=== PATIENT | male | born 1980 | race Caucasian/White ===

== ENCOUNTER 2020-09-05 01:20 | Inpatient (IN) | payer OTHER ==
[~2020-09-05] VITALS: Ht 193 cm; Wt 100.0 kg
--- NOTE | 2020-09-05 01:30 | NUR ---
pt bibra c/o bilateral foot pain. Pt aaox4 breathing evenly and unlabored. Pt states "it might be infected" Upon assessement pt has some redness and peeling skin. Pt skin warm and dry. Pt attached to monitor and pox. Md at bedside for eval. Pt given blanket and call light within reach
[2020-09-05] MEDS ORDERED: FLUCONAZOLE (100 MG) 100 MG TABLET PO ONE (02:00)
[2020-09-05] MEDS ORDERED: VANCOMYCIN 1 GM in IV D5W 250 ML IV ONE (02:00)
[2020-09-05] MEDS ORDERED: VANCOMYCIN 1 GM VIAL ONE (02:06)
[2020-09-05] MEDS ORDERED: FLUCONAZOLE (100 MG) 100 MG TABLET ONE (02:06)
[2020-09-05 02:27] LABS: BASOPHILS # (AUTO) 0.1 /CMM (0.0-0.2); BASOPHILS % (AUTO) 0.5 % (0.0-2.0); EOSINOPHILS % (AUTO) 1.5 % (0.0-6.0); HEMATOCRIT 38 % (39-51); HEMOGLOBIN 12.3 g/dL (13.5-17.5); LYMPHOCYTES # (AUTO) 2.2 /CMM (0.8-4.8); LYMPHOCYTES % (AUTO) 18.6 % (20.0-44.0); MEAN CORPUSCULAR HGB CONC 33 g/dl (31.0-36.0); MEAN CORPUSCULAR VOLUME 91 fL (80-96); MONOCYTES # (AUTO) 0.9 /CMM (0.1-1.30); MONOCYTES % (AUTO) 7.3 % (2.0-12.0); NEUTROPHILS # (AUTO) 8.6 /CMM (1.8-8.9); NEUTROPHILS % (AUTO) 72.1 % (43.0-81.0); PLATELET COUNT (AUTO) 331 /CMM (150-450); RED BLOOD CELL COUNT(AUTO) 4.12 MIL/uL (4.5-6.0)
[2020-09-05 02:36] LABS: ALBUMIN 3.7 g/dL (3.4-5.0); BILIRUBIN,DIRECT 0.1 mg/dL (0.0-0.2); BILIRUBIN,TOTAL 0.3 mg/dL (0.2-1.0); CALCIUM, SERUM 8.9 mg/dL (8.5-10.1); CREATININE 0.8 mg/dL (0.6-1.3); POTASSIUM 3.1 mmol/L (3.5-5.1); TOTAL PROTEIN, SERUM 7.3 g/dL (6.4-8.2)
[2020-09-05] MEDS ORDERED: IV PREMIX D5 1/2NS + KCL 1,000 ML IV ONE ×2 (03:00→03:44)
--- NOTE | 2020-09-05 03:02 | NUR ---
CALL FROM LAB. RAPID COVID NEGATIVE.
--- NOTE | 2020-09-05 03:32 | NUR ---
DR. JARAMILLO SPEAKING TO [facility] LAURA
--- NOTE | 2020-09-05 03:34 | NUR ---
CALLED RN SUP. FOR MED SURG BED.
--- NOTE | 2020-09-05 03:51 | NUR ---
report given to alvarado on third floor
[2020-09-05] MEDS ORDERED: LAMO100T41 PO (03:59)
[2020-09-05] MEDS ORDERED: GABA-532 PO (03:59)
[2020-09-05] MEDS ORDERED: ARIP10TA9 PO (03:59)
[2020-09-05] MEDS ORDERED: TEMA15CA5 PO (03:59)
[2020-09-05] MEDS ORDERED: TEMAZEPAM 15 MG CAPSULE PO PRN (04:00)
[2020-09-05] MEDS ORDERED: MAGNESIUM HYDROXIDE 30 ML UDC PO PRN (04:00)
[2020-09-05] MEDS ORDERED: IV NS 0.9% 1,000 ML IV PRN (04:00)
[2020-09-05] MEDS ORDERED: Z GUARD REMEDY 2 OZ OINT TP PRN (04:00)
[2020-09-05] MEDS ORDERED: ONDANSETRON HCL/PF 4 MG/2 ML VIAL IVP PRN (04:00)
[2020-09-05] MEDS ORDERED: HYDROCODONE/APAP 5/325MG TABLET PO PRN (04:00)
[2020-09-05] MEDS ORDERED: MAG HYDROX/AL HYDROX/SIMETH 30 ML UDC PO PRN (04:00)
[2020-09-05] MEDS ORDERED: ACETAMINOPHEN 325 MG TABLET PO PRN (04:00)
[2020-09-05] MEDS ORDERED: HYDROCODONE/APAP 5/325MG TABLET PO ONE (04:00)
[2020-09-05 04:05] VITALS: BP 146/91
--- NOTE | 2020-09-05 04:05 | NUR ---
MS TEN PIN BOWLING CENTRE MANAGER NOTES GOT REPORT ON THE PHONE FROM GABRIEL FRANCIS. PATIENT RECEIVED AT THIS TIME VIA [facility]. PATIENT AMBULATORY. NO S/S OF DISTRESS, TOLERATING ROOM AIR. NO C/O PAIN AT THE MOMENT. L. AC IV LINE INTACT, RUNNING POTASSIUM CHLORIDE 1000ML @250 ML/HR. VS FOLLOW: BP- 146/91; HR-61; T- 98.0; O2 SAT 100% ON ROOM AIR. WEIGHING 220.6 LBS VIA BED SCALE. WILL CONTINUE TO MONITOR.
--- NOTE | 2020-09-05 04:09 | NUR ---
pt was transferred to 326 in stable condition
[2020-09-05 05:36] VITALS: BP 146/91
--- NOTE | 2020-09-05 06:33 | NUR ---
MS RN CLOSING PATIENT IN BED WITH EYES CLOSED, EASY TO AROUSE. A/OX 4. NO S/S OF DISTRESS. NO C/O PAIN BLUE. ABLE TO MAKE NEEDS KNOWN, ALL NEEDS ATTENDED. PATIENT AMBULATORY. SAFETY KEPT IN PLACE THE WHOLE SHIFT: BED IN LOWEST, LOCKED POSITION; CALL LIGHT WITHIN REACH. IV RUNNING POTASSIUM CHLORIDE @250 ML/HR FROM ER. WILL ENDORSE CARE TO MORNING RN.
--- NOTE | 2020-09-05 07:22 | NUR ---
MS RN OPENING NOTE PATIENT IS ASLEEP IN BED, EASY TO AROUSE. PATIENT IS ALERT AND ORIENTED X 4. ON ROOM AIR WITH EVEN AND UNLABORED BREATHING. SO SIGNS OF RESPIRATORY DISTRESS. WITH IV ACCESS ON LEFT AC G#20, PATENT AND INTACT. SAFETY MEASURES IN PLACE WITH SIDE RAILS UP X 2. BED AT LOWEST POSITION AND LOCKED. CALL LIGHT IS WITHIN REACH AT ALL TIMES. WILL CONTINUE TO MONITOR PATIENT.
[2020-09-05 08:00] VITALS: BP 140/89
[2020-09-05] MEDS: POTASSIUM CHLORIDE 20 MEQ TAB.PRT.SR PO SCH ×2 (10:20→11:21)
[2020-09-05] MEDS: VANCOMYCIN 1.25 GM in IV D5W 250 ML IV SCH ×2 (10:21→17:24)
[2020-09-05 16:00] VITALS: BP 139/89
--- NOTE | 2020-09-05 17:44 | NUR ---
MS RN CLOSING NOTE PATIENT AWAKE ON BED ALERT AND ORIENTED. PATIENT DENIES ANY PAIN OR DISCOMFORT. WITH NO SIGNS OF DISTRESS THROUGHOUT THE SHIFT. NO SIGNS AND SYMPTOMS OF AKATHISIA, TREMORS OR EPS NOTED THROUGHOUT THE SHIFT. BED MAINTAINED ON LOWEST POSITION AND LOCKED. CALL LIGHT AND BEDSIDE TABLE WITHIN REACH AT ALL TIMES. WILL ENDORSE TO LITHOGRAPHIC RETOUCHER APPRENTICE FOR CONTINUITY OF CARE.
--- NOTE | 2020-09-05 18:24 | NUR ---
RN NOTES PHOTOS OF SKIN ISSUES TAKEN AND PLACED IN CHART. WOUND CARE CONSULT ORDERED FOR PATIENT.
[2020-09-05] MEDS: GABAPENTIN 300 MG CAPSULE PO SCH (19:01)
[2020-09-05] MEDS: CLONIDINE HCL 0.1 MG TABLET PO SCH (19:02)
--- NOTE | 2020-09-05 19:49 | NUR ---
MS RN OPENING NOTE RECEIVED PT AWAKE IN BED. A/O X4. PT STABLE ON ROOM AIR. NO SOB NOTED. NO S/S OF RESPIRATORY DISTRESS. PT IS AMBULATORY WITH BRP. PT HAS NO C/O PAIN AT THIS TIME. IV ACCESS IN LEFT FA #22, INFUSING NS @ 75 ML/HR. IV IS INTACT, PATENT, AND FLUSHING WELL. SAFETY MEASURES MAINTAINED. BED IN LOWEST LOCKED POSITION, HOB ELEVATED, SIDE RAILS UP X2. CALL LIGHT AND TABLE WITHIN REACH. WILL CONTINUE WITH PLAN OF CARE.
[2020-09-05 20:00] VITALS: BP 132/83
--- NOTE | 2020-09-05 22:58 | NUR ---
RECEIVED ORDERS FROM DR. SANCHEZ TO ADMINISTER NORCO 5-325 1 TAB PO Q4H PRN FOR MODERATE PAIN LEVEL 4-7. ORDERS READ BACK, ENTERED, AND CARRIED OUT. WILL CONTINUE TO MONITOR.
[2020-09-06] MEDS: HYDROCODONE/APAP 5/325MG TABLET PO PRN ×2 (00:33→05:29)
--- NOTE | 2020-09-06 00:33 | NUR ---
MS RN PAIN PT C/O THROBBING PAIN IN RIGHT FOOT, RATED 7/10 ON 1-10 PAIN SCALE. VS WNL. PER PT REQUEST, ADMINISTERED NORCO 5-325 MG PO Q4H PRN FOR PAIN. WILL CONTINUE TO MONITOR.
[2020-09-06] MEDS: VANCOMYCIN 1.25 GM in IV D5W 250 ML IV SCH ×3 (01:45→17:34)
[2020-09-06] MEDS: CLONIDINE HCL 0.1 MG TABLET PO SCH ×3 (05:19→20:31)
--- NOTE | 2020-09-06 05:29 | NUR ---
MS RN PAIN PT C/O THROBBING PAIN IN RIGHT FOOT, RATED 7/10 ON 1-10 PAIN SCALE. VSS. PER PT REQUEST, ADMINISTERED NORCO 5-325 MG PO Q4H PRN FOR PAIN. WILL CONTINUE TO MONITOR.
--- NOTE | 2020-09-06 06:02 | NUR ---
MS RN CLOSING NOTE PT IS AWAKE IN BED AT THIS TIME. A/O X4. PT STABLE ON ROOM AIR. NO SOB NOTED. NO S/S OF RESPIRATORY DISTRESS. PT IS AMBULATORY WITH BRP. IV ACCESS IS INTACT, PATENT, AND FLUSHING WELL. ALL NEEDS HAVE BEEN MET. PAIN MANAGEMENT ADMINISTERED PER ORDER. SAFETY MEASURES MAINTAINED AT ALL TIMES. BED IN LOWEST LOCKED POSITION, HOB ELEVATED, SIDE RAILS UP X2. CALL LIGHT AND TABLE WITHIN REACH. WILL ENDORSE TO ONCOMING NURSE FOR FAINA.
[2020-09-06 06:24] LABS: BASOPHILS # (AUTO) 0.1 /CMM (0.0-0.2); BASOPHILS % (AUTO) 0.9 % (0.0-2.0); EOSINOPHILS % (AUTO) 3.6 % (0.0-6.0); HEMATOCRIT 38 % (39-51); HEMOGLOBIN 12.7 g/dL (13.5-17.5); LYMPHOCYTES # (AUTO) 2.3 /CMM (0.8-4.8); LYMPHOCYTES % (AUTO) 28.2 % (20.0-44.0); MEAN CORPUSCULAR HGB CONC 34 g/dl (31.0-36.0); MEAN CORPUSCULAR VOLUME 91 fL (80-96); MONOCYTES # (AUTO) 0.6 /CMM (0.1-1.30); MONOCYTES % (AUTO) 7.4 % (2.0-12.0); NEUTROPHILS # (AUTO) 4.8 /CMM (1.8-8.9); NEUTROPHILS % (AUTO) 59.9 % (43.0-81.0); PLATELET COUNT (AUTO) 298 /CMM (150-450); RED BLOOD CELL COUNT(AUTO) 4.18 MIL/uL (4.5-6.0); WHITE BLOOD COUNT (AUTO) 8.1 K/uL (4.3-11.0)
[2020-09-06 06:55] LABS: CALCIUM, SERUM 8.2 mg/dL (8.5-10.1); CREATININE 0.6 mg/dL (0.6-1.3); MAGNESIUM 2.1 mg/dL (1.8-2.4); PHOSPHORUS 3.7 mg/dL (2.5-4.9); POTASSIUM 4.2 mmol/L (3.5-5.1)
--- NOTE | 2020-09-06 07:35 | NUR ---
MS RN OPENING NOTE RECEIVED PT ASLEEP IN BED, EASY TO AROUSE. A/O X4. PT STABLE ON ROOM AIR. NO SOB NOTED. NO SIGNS OR SYMPTOMS OF RESPIRATORY DISTRESS. PATIENT IS AMBULATORY WITH BRP. IV ACCESS IN LEFT FA #22. IV IS INTACT AND PATENT. SAFETY MEASURES IN PLACE. BED IN LOWEST LOCKED POSITION WITH SIDE RAILS UP X2. CALL LIGHT IS WITHIN REACH. WILL CONTINUE TO MONITOR THROUGHOUT SHIFT.
[2020-09-06 08:00] VITALS: BP 136/69
--- NOTE | 2020-09-06 08:14 | NUR ---
WOUND CARE CONSULT: PT PRESENTS WITH PAINFUL LESIONS TO PLANTAR FEET/TOES, PRESENT ON ADMISSION. RECOMMEND DPM CONSULT. DR JACOBSEN NOTIFIED OF CONSULT REQUEST. PT IS INDEPENDENT WITH BED MOBILITY AND IS CONTINENT. MD IN AGREEMENT WITH PLAN OF CARE.
--- NOTE | 2020-09-06 09:00 | NUR ---
MS RN NOTES PHARMACY CALLED TO CLARIFY PATIENT ALLERGIC TO HYDROMORPHONE, IF PATIENT HAS TAKEN MORPHINE BEFORE. VERIFIED WITH PATIENT, PATIENT SAID "I HAD MORPHINE BEFORE WITH NO PROBLEM." NOTIFIED PHARMACY AND DR. SISI CHAPMAN SAID OK TO GIVE MORPHINE.
[2020-09-06] MEDS: ENOXAPARIN SODIUM 40 MG/0.4 ML DISP.SYRIN SQ SCH ×2 (09:17→09:40)
[2020-09-06] MEDS: GABAPENTIN 300 MG CAPSULE PO SCH ×3 (09:17→17:30)
[2020-09-06] MEDS: MORPHINE SULFATE INJ 4 MG/ML DISP.SYRIN IV PRN ×4 (09:32→21:17)
--- NOTE | 2020-09-06 12:37 | NUR ---
MS RN NOTES 2 BOLT LABELER OFFICERS ARRIVED ON UNIT TO SPEAK DIRECTLY TO PATIENT TO DISCUSS PERSONAL MATTER OF AN OCCURRENCE PRIOR TO ADMISSION IN HOSPITAL.
--- NOTE | 2020-09-06 12:37 | NUR ---
MS RIOS NOTES 2 TECHNICAL SPECIALIST CYTOGENETICS IN [facility] ARRIVED ON UNIT FOR PATIENT TO DISCUSS PERSONAL MATTER OF AN OCCURRENCE PRIOR TO ADMISSION IN HOSPITAL. Addendum: 09/06/20 at 1931 by DENA TA RN DISREGARD ABOVE NOTES, WRONG ENTRY.
--- NOTE | 2020-09-06 13:19 | NUR ---
MS RN NOTES ORDERS RECEIVED FOR BACTROBAN TOPICAL THREE TIMES A DAY TO BILATERAL FEET FROM DR. SISI CHAPMAN. ORDERS READ BACK AND CARRIED OUT.
--- NOTE | 2020-09-06 14:49 | NUR ---
MS RN NOTE PATIENT IS AWAKE IN BED. ALERT AND ORIENTED X4. NO SIGNS AND SYMPTOMS OF DISTRESS NOTED. MORPHINE GIVEN AT 1306. SAFETY MEASURES IN PLACE. SIDE RAILS UP X 2, BED LOCKED AT LOWEST POSITION. CALL LIGHT WITHIN REACH. WILL CONTINUE TO MONITOR THROUGHOUT SHIFT.
--- NOTE | 2020-09-06 16:00 | NUR ---
"SS consult: SS Consult requested for homelessness and Drug use. The pt. is a 40-year old male. CHET met with pt. bedside. The pt. is alert & oriented x 4. The pt. appears unkempt, has pressured speech pt.s mood is sad. Pt. began crying during interview. Pt. states that he has been experiencing homelessness for the past 4 months and has been staying in shelters. Pt. is open to usp placement after he is medically cleared. SW provided pt. with homeless resources and pt. stated he will call some shelters and see if they can hold a bed for him. CHET explored pt.s psych Hx. Per pt. he has been diagnosed with Bipolar Disorder and is currently not on any psychotropic medication. Per pt. he has been using heroin and other drugs from the age of 14- 23 and was sober from age [age]. Per pt. he began to use Heroin & Fentanyl in 2018 after his divorce. Patient was given a dose of Morphine by Dr. Long Chaidez. This social service technician met with patient and provided him with referrals to: [facility]: [address] [place] [address] Intake hours: 5:45am9:00am, walk-ins Wednesday, Wednesday, [facility]: [address] [place] [address] Intake hours: 5:45am12:30pm, Wednesday and [facility]: [address] [place] [address] Intake hours: 8:00am2:00pm, Wednesday through Wednesday Patient stated he will present for intake at [facility] ([address] [place] [address]; [phone]) upon discharge. flat screen worker provided support with motivational interviewing, education regarding opioid dependence, brief intervention and referral to treatment. Patient appears to be at the Action phase of change with his substance dependence. Patients additional concerns were that his disability benefits have and is working on an extension with his PCP.Patient has opioid dependence at [facility] patient reports failed attempts with treatment for his substance dependence. Patient states he has 3 daughters who he keeps in contact with daily and are his motivation to stay sober. flat screen worker provided her desk number for patient to call if he needs additional support, resources or assistance. Report was given to RN, Lisa Helms, who is agreeable to plan. SW informed charge nurse that patient should be provided with bus pass upon discharge. Patient signed the homeless waiver & it was filed in the pt.s chart. CHET provided pt. with the following homeless resources: Substance Abuse resources provided included: [facility] Substance Abuse Self-Helpline ([facility]) ; CRI -HELP [address] [facility] [place] [phone] ; [facility] [address] [facility] [address] ; [facility] [address] [facility] [phone] ; [facility] [address] [phone] ; [facility] [address] [facility] [address] ; [facility] [address] [facility] [phone] ; [facility] Substance Abuse Helpline([facility] ; [facility] ; [facility]; [facility] [place]; [facility] [place]athan; [facility]; [place]; [facility] [place]; [facility] [place]; Alcoholics Anonymous -SFV; Mx-Kewg-Pormxyl ; Marijuana Anonymous -SFV; Narcotics Anonymous www.na.org; Year-round shelters: [facility] [place] [address] [place] [address] ; [facility] [place] [address] [facility] [place] [address]; [facility] [address] [facility] [address] Winter Shelters: Kelly Nunes [place] Provider: [facility] [place] Address: [address] [place], [address] # of Beds: 47 Population Served: [facility] 6 | [facility] [place] Provider: [facility] Address: [address], [address] # of Beds: 66 Population Served: [facility] [place] Provider: First [facility] Serve Address: [address] [facility], [address] # of Beds: 56 Population Served: [facility] [place]ron [place] Provider: SS/[facility]. [facility] Address: [address] [facility], [address] # of Beds: 49 Population Served: [facility] 8 | [facility] Provider: [facility] Address: [address] [facility], [address] # of Beds: 37 Population Served: [facility] Hygiene: [facility]: [address] [address] ; [facility] [address] [facility] ; [facility] [address] . Food Resources: [place] [facility] at [facility]- [address] [place]; Meet Each Need with Dignity ([facility]) [address] [address] [place]; [facility] Food Pantry [address] [facility]; [facility] [address]. Mental Health resources provided: [facility] [address] [place] [address] ; [facility] [address] [facility] [address], [place], [place] [phone] ; [facility] [address] [place], [place] [phone] ; [facility] [address] [place], [place] [address] Healthcare Clinics: [facility] [address] [facility], [address] [place]. [place] ; [facility] [address] [facility] [address] [place] [address]; [facility] [address] [facility] [phone] Counseling--Outpatient [facility] [address] [facility] [address], [place] [address] (Specializes in in-depth psychotherapy for emotional distress: anxiety, depression, interpersonal conflicts, life transitions, childhood abuse) [facility] [address] [place] [address] (Assist with solving problem marital difficulties, separation & divorce, aging parents, & grief, chronic & terminal illness) [facility] [address] [place] [address] (Deal with loss & grief, anxiety, marital difficulties) Homebound/Mental Health Services [address] [facility], [address] [place], [place] [phone] (Provide in-home mental services to people who are incapable of leaving their homes) [facility] for Needs of the Elderly Senior Service/Resource Center [address] [facility] [place] [address] [facility] 6514 [facility]. [place], [place] [address] PSYCHIATRIC OUTPATIENT SERVICES [facility] Partial Hospitalization and Intensive Outpatient Program (Managed Care and [place] Only)[address] [address]. [facility] [phone] [facility] Partial Hospitalization and Outpatient [id number] [facility]. [address] [place], [place] [phone] [facility] Partial Hospitalization and Outpatient Pixclfg[address] [facility]. [place], [place] [phone] [facility] Geo02259 [address] [facility]. [address] [place], [place] [phone] [facility] Partial Hospitalization and Outpatient Nuofcix[address] [place], [phone] "
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
[2020-09-06] MEDS ORDERED: MUPIROCIN OINT 2% 22 GM TUBE TP SCH (17:00)
--- NOTE | 2020-09-06 19:07 | NUR ---
MS RN CLOSING NOTE PATIENT IS AWAKE IN BED. A/O X4. PT STABLE ON ROOM AIR. NO SOB NOTED. NO SIGNS OR SYMPTOMS OF RESPIRATORY DISTRESS. PATIENT IS AMBULATORY WITH BRP. IV ACCESS IN LEFT FA #22. IV IS INTACT AND PATENT. PAIN MEDICATION GIVEN AT 1734. SAFETY MEASURES IN PLACE. BED IN LOWEST LOCKED POSITION WITH SIDE RAILS UP X2. CALL LIGHT IS WITHIN REACH. WILL ENDORSE TO ONCOMING SHIFT.
[2020-09-06 20:00] VITALS: BP 126/88
--- NOTE | 2020-09-06 21:17 | NUR ---
MS RN PAIN PT C/O SHARP AND THROBBING PAIN IN RIGHT FOOT, RATED 9/10 ON 1-10 PAIN SCALE. VS WNL. PER PT REQUEST, ADMINISTERED MORPHINE SULFATE 4 MG IV Q3H PRN FOR PAIN. WILL CONTINUE TO MONITOR.
[2020-09-07] MEDS: VANCOMYCIN 1.25 GM in IV D5W 250 ML IV SCH ×2 (02:40→10:06)
[2020-09-07] MEDS: MORPHINE SULFATE INJ 4 MG/ML DISP.SYRIN IV PRN ×3 (03:14→12:18)
--- NOTE | 2020-09-07 03:14 | NUR ---
MS RN PAIN PT C/O THROBBING PAIN IN UPPER AND LOWER BACK, RATED 9/10 ON 1-10 PAIN SCALE. VS WNL. PER PT REQUEST, ADMINISTERED MORPHINE SULFATE 4 MG IV Q3H PRN FOR PAIN. WILL CONTINUE TO MONITOR.
[2020-09-07] MEDS: CLONIDINE HCL 0.1 MG TABLET PO SCH ×2 (05:59→12:18)
[2020-09-07 07:09] LABS: CALCIUM, SERUM 8.7 mg/dL (8.5-10.1); CREATININE 0.7 mg/dL (0.6-1.3); POTASSIUM 4.4 mmol/L (3.5-5.1)
--- NOTE | 2020-09-07 07:57 | NUR ---
MS RN OPENING NOTE RECEIVED PT AWAKE IN BED. A/O X4. PT STABLE ON ROOM AIR. NO SOB NOTED. NO S/S OF RESPIRATORY DISTRESS. PT IS AMBULATORY WITH BRP. PT HAS NO C/O PAIN AT THIS TIME. IV ACCESS IN LEFT FA #22, INFUSING NS @ 75 ML/HR. IV IS INTACT, PATENT, AND FLUSHING WELL. SAFETY MEASURES MAINTAINED. BED IN LOWEST LOCKED POSITION, HOB ELEVATED, SIDE RAILS UP X2. CALL LIGHT AND TABLE WITHIN REACH AND ANSWERED PROMPTLY
[2020-09-07 08:00] VITALS: BP 125/79
[2020-09-07] MEDS: GABAPENTIN 300 MG CAPSULE PO SCH ×2 (08:02→12:18)
[2020-09-07] MEDS: ENOXAPARIN SODIUM 40 MG/0.4 ML DISP.SYRIN SQ SCH (08:08)
[2020-09-07] MEDS ORDERED: KETOCONAZOLE 2% CREAM 15 GM TUBE TP SCH (09:00)
[2020-09-07] MEDS ORDERED: MUPIROCIN OINT 2% 22 GM TUBE TP SCH (09:00)
[2020-09-07 12:18] VITALS: BP 120/78
[2020-09-07] MEDS ORDERED: KETO15CR2 TP (13:37)
[2020-09-07] MEDS ORDERED: MUPI22OI7 TP (13:37)
[2020-09-07] MEDS ORDERED: SULF1TAB48 PO (13:37)
[2020-09-07] MEDS ORDERED: MORPHINE SULFATE INJ 10 MG/ML DISP.SYRIN IM STA (14:39)
--- NOTE | 2020-09-07 15:38 | NUR ---
DISCHARGE NOTE PT LEFT HOSPITAL AT 1530 PM, ALL BELONGINGS ACCOUNTED FOR AND SHEET SIGNED, PT SIGNED HOMELESS WAIVER, WITNESSED BY RN , IV ACCESS SAFELY REMOVED, PT GIVEN REFERRALS TO TREATMENT CENTERS FOR FURTHER USE, ADVISED TO RETURN TO ER IF EMERGENCY ARISES
--- NOTE | 2020-09-07 15:39 | NUR ---
PT REFUSED PHOTO OF WOUNDS BEFORE DISCHARGE
[2020-09-07] MEDS ORDERED: VANCOMYCIN 1 GM in IV D5W 250ml IV SCH (18:00)
== END 2020-09-07 15:30 | disposition home or self-care (01) | DRG 383 ==
LOC: ER 01:27 → MED 03:54
PROVIDERS: ADMIT Nurse Practitioner Acute Care; ATTEND Nurse Practitioner Acute Care
DX: L03.115 Cellulitis of right lower limb (principal); E11.42 Type 2 diabetes mellitus with diabetic polyneuropathy; B35.3 Tinea pedis; E87.6 Hypokalemia; F15.10 Other stimulant abuse, uncomplicated; F11.23 Opioid dependence with withdrawal; I10 Essential (primary) hypertension; Z20.822 Contact with and (suspected) exposure to COVID-19; L03.116 Cellulitis of left lower limb; F17.210 Nicotine dependence, cigarettes, uncomplicated; L03.032 Cellulitis of left toe; Z59.0 Homelessness; L84 Corns and callosities
CPT/HCPCS: 36415; 73630-TC; 80048-TC; 80076-TC; 80202-TC; 83735-TC; 84100-TC; 85025-TC; 85730-TC; 87040-TC; 87081-TC; C9803; G0378; J1650; J2270; J3370; J3490; J7030; J7060